=== PATIENT | female | born 1955 ===

== ENCOUNTER 2018-02-16 21:04 | Emergency (ER) | payer SELFPAY ==
[2018-02-16 21:16] VITALS: TEMP 98.6
[2018-02-16] MEDS ORDERED: Aspirin 325 mg EC Tablets PO STA (21:32)
--- NOTE | 2018-02-16 21:35 | C.PDOC ---
History Of Present Illness 63 year old female patient with hx of hyperthyroidism presents to the ER with c/o dizziness and chest pressure. Patient reports she had high blood pressure for x1 week. Patient was prescribed Amlodipine 2.5 mg but never used it. Patient denies nausea, vomiting and diarrhea. Time Seen by Provider: 02/16/18 21:18 Chief Complaint (Nursing): Chest Pain History Per: Patient History/Exam Limitations: no limitations Onset/Duration Of Symptoms: Days (x1 week) Current Symptoms Are (Timing): Still Present Past Medical History Reviewed: Historical Data, Nursing Documentation, Vital Signs Vital Signs: Last Vital Signs Temp 98.6 F 02/16/18 21:11 Pulse 101 H 02/16/18 21:11 Resp 18 02/16/18 21:11 BP 166/114 H 02/16/18 21:11 Pulse Ox 100 02/16/18 21:11 - Medical History PMH: HTN, Hypothyroidism Family History: States: No Known Family Hx - Social History Hx Alcohol Use: No Hx Substance Use: No - Immunization History Hx Tetanus Toxoid Vaccination: No Hx Influenza Vaccination: No Hx Pneumococcal Vaccination: No Review Of Systems Except As Marked, All Systems Reviewed And Found Negative. Cardiovascular: Positive for: Chest Pain (pressure) Gastrointestinal: Negative for: Nausea, Vomiting, Diarrhea Neurological: Positive for: Dizziness Physical Exam - Physical Exam Appears: Non-toxic, No Acute Distress Skin: Normal Color, Warm, Dry Head: Normacephalic Eye(s): bilateral: Normal Inspection, EOMI Chest: Symmetrical, No Deformity Cardiovascular: Rhythm Regular Respiratory: Normal Breath Sounds Extremity: Normal ROM (x4) Neurological/Psych: Oriented x3, Normal Speech Gait: Steady ED Course And Treatment - Laboratory Results Result Diagrams: 02/16/18 21:37 02/16/18 21:37 ECG: Interpreted By Me, Viewed By Me ECG Rhythm: Sinus Rhythm Interpretation Of ECG: ST wave abnormalities Rate From EC O2 Sat by Pulse Oximetry: 100 (RA) Pulse Ox Interpretation: Normal Medical Decision Making Medical Decision Making: Impression: dizziness and chest pressure with high blood pressure Plans: -- EKG -- chem labs -- blood work -- CXR -- Ecotrin -- lopressor -- nitrostat CTA unremarkable CO resolved, BP normalized Disposition Counseled Patient/Family Regarding: Studies Performed, Diagnosis, Need For Followup, Rx Given - Disposition Referrals: [facility] [Outside] Disposition: HOME/ ROUTINE Disposition Time: 23:43 Condition: IMPROVED Prescriptions: Metoprolol Sunshine/Hydrochlorothiaz [Metoprolol ER-Hctz 25-12.5 mg] 1 each PO DAILY #30 tab.er.24h Instructions: High Blood Pressure Emergencies Forms: Gen Discharge Inst Kazakh - POA Present On Arrival: None - Clinical Impression Clinical Impression: Chest pain, Hypertension - Scribe Statement The provider has reviewed the documentation as recorded by the Ray Skinner Do Provider Attestation: All medical record entries made by the Ray were at my direction and personally dictated by me. I have reviewed the chart and agree that the record accurately reflects my personal performance of the history, physical exam, medical decision making, and the department course for this patient. I have also personally directed, reviewed, and agree with the discharge instructions and disposition.
[2018-02-16] MEDS ORDERED: Aspirin 325 mg EC Tablets PO ONE (21:42)
[2018-02-16 21:44] LABS: BASO # 0.1 K/uL (0.0-0.2); BASO % 0.9 % (0.0-2.0); EOS # 0.8 K/uL (0.0-0.7); EOS % 8.5 % (0.0-4.0); HEMOGLOBIN 13.4 g/dL (11.0-16.0); LYMPH # 3.1 K/uL (1.0-4.3); LYMPH % 31.7 % (20.0-40.0); MEAN CORPUSCULAR HEMOGLOBIN 30.1 pg (27.0-31.0); MEAN CORPUSCULAR HGB CONC 34.2 g/dL (33.0-37.0); MONO # 0.6 K/uL (0.0-0.8); NEUT # 5.1 K/uL (1.8-7.0); NEUT % 52.9 % (50.0-75.0); RBC 4.44 Mil/uL (3.80-5.20); RED CELL DISTRIBUTION WIDTH 13.5 % (11.5-14.5); WHITE BLOOD COUNT 9.7 K/uL (4.8-10.8)
[2018-02-16 21:53] LABS: ALB/GLOB RATIO 1.4 (1.0-2.1); ALBUMIN 4.7 g/dL (3.5-5.0); ALT/SGPT 22 U/L (9-52); AST/SGOT 25 U/L (14-36); BLOOD UREA NITROGEN 18 mg/dL (7-17); GFR NON-AFRICAN AMERICAN > 60
[2018-02-16 22:04] LABS: B-TYPE NATRIURETIC PEPTIDE 83.9 pg/mL (0-900)
[2018-02-16] MEDS ORDERED: Iodixanol 320 MG/ML 100 ML BOTTLE IV ONE (22:10)
[2018-02-16 22:58] VITALS: BP 150/82; PULSE 69; RESP 16
[2018-02-16 23:43] VITALS: O2SAT 100
--- NOTE | 2018-02-17 09:29 | RAD ---
Date of service: 02/16/2018 HISTORY: chest pain COMPARISON: No prior. TECHNIQUE: Chest PA and lateral FINDINGS: LUNGS: The interstitial markings are slightly increased and coarsened; rule out sequela of reactive- inflammatory airway disease or viral illness. No acute focal consolidation. There also appear to be mild biapical pleural thickening changes left greater than right. Questionable left apical pleural based calcifications and/or calcified granulomata. Follow-up nonemergent CT scan of the chest could be performed for further evaluation. PLEURA: No significant pleural effusion identified. No pneumothorax apparent. CARDIOVASCULAR: Normal. OSSEOUS STRUCTURES: Mild multilevel degenerative spondylosis of the thoracic spine VISUALIZED UPPER ABDOMEN: Normal. OTHER FINDINGS: None. IMPRESSION: The interstitial markings are slightly increased and coarsened; rule out sequela of reactive - inflammatory airway disease or viral illness. No acute focal consolidation. The there also appear to be mild biapical pleural thickening changes left greater than right. Questionable left apical pleural based calcifications and/or calcified granulomata. Follow-up nonemergent CT scan of the chest could be performed for further evaluation.
--- NOTE | 2018-02-17 12:24 | CT ---
PROCEDURE: CT Angiography Chest, Abdomen and Pelvis with and without intravenous contrast HISTORY: chest and back pain, HTN COMPARISON: None. TECHNIQUE: Contiguous axial images of the chest, abdomen and pelvis were obtained in the phase of aortic enhancement. A noncontrast enhanced CT of the chest was also obtained to evaluate for possible intramural thrombus. Coronal and sagittal reformats were generated. IV dose administered: 100 cc Visipaque 320 Radiation dose: Total exam DLP = 989.03 mGy-cm. This CT exam was performed using one or more of the following dose reduction techniques: Automated exposure control, adjustment of the mA and/or kV according to patient size, and/or use of iterative reconstruction technique. FINDINGS: CT ANGIOGRAPHY OF THE CHEST WITH & WITHOUT CONTRAST: AORTA (CHEST AND ABDOMEN): The thoracic and abdominal aorta are unremarkable, without aneurysm, dissection or rupture. No intramural thrombus identified in the thoracic aorta on the non-contrast ct of the chest. The celiac axis, superior mesenteric artery, inferior mesenteric artery and the renal arteries are widely patent. The pelvic arteries are unremarkable. LUNGS: Clear. No nodule, mass or consolidation. MEDIASTINUM: Heart is enlarged. No significant pericardial effusion. Normal caliber aorta measuring approximately 3.4 cm. Descending thoracic aorta measures approximately 2.35 cm. No evidence of aortic dissection. Three-vessel arch. Pulmonary trunk measures approximately 3.0 cm.. There is a small hiatal hernia. LYMPH NODES: No significant mediastinal or hilar adenopathy. Central airways midline and patent. There are no large central endoluminal lesions PLEURA: Unremarkable. No pneumothorax. No pleural fluid. BONES: Minor multilevel degenerative spondylosis of the thoracic and lumbar spine. There are no acute compression fractures nor retropulsed fragments. Minimal scoliotic deformity mid thoracic spine convex right and lower thoracic spine convex left. Moderately large amount no suspicious lytic or blastic lesions. OTHER FINDINGS: None.. CT ANGIOGRAPHY OF THE ABDOMEN AND PELVIS WITH CONTRAST: LIVER: There are few small round and elliptical shaped low-attenuation foci scattered throughout the hepatic parenchyma the largest in the left lobe measuring approximately 9 mm consistent with a small cyst with Hounsfield units in the mid teens. A 2nd smaller focal area of low attenuation seen in the right lobe of the liver measuring approximately 6 mm with Hounsfield units in the mid 20s. This could represent a small cyst or hemangioma. Follow-up nonemergent triple phase CT scan of the liver could be performed for further evaluation. GALLBLADDER AND BILE DUCTS: No definitive evidence of intraluminal gallbladder calculi. PANCREAS: Unremarkable. No gross lesion or ductal dilatation. SPLEEN: Unremarkable. ADRENALS: No adrenal lesions. KIDNEYS AND URETERS: Unremarkable. No hydronephrosis. No solid mass. VASCULATURE: Unremarkable. No aortic aneurysm. STOMACH AND BOWEL: Moderate amount of stool is seen throughout the large bowel consistent with fecal retention/constipation. The APPENDIX: Normal appendix. PERITONEUM: Unremarkable. No free fluid. No free air. LYMPH NODES: Unremarkable. No enlarged lymph nodes. BLADDER: Urinary bladder is physiologically distended. No evidence of intraluminal urinary bladder calculi. REPRODUCTIVE: Apparent retroverted uterus occupying the right aspect of the cul de sac. BONES: No acute fracture. OTHER FINDINGS: None. IMPRESSION: No evidence of abdominal aortic aneurysm or dissection no significant atherosclerotic disease of the thoracic or abdominal aorta Suspect small cyst left lobe liver. Tiny sub cm low-attenuation focus right lobe liver too small to characterize though may represent small cyst or hemangioma. Follow-up triple phase CT scan liver could be performed for further evaluation. Findings consistent with constipation. Note that this report was placed in PA review folder for follow up.
--- NOTE | 2018-02-18 21:06 | CARD ---
APPROVED REPORT Date of service: 02/16/2018 EKG Measurement Heart [id number] <Conclusion> Normal sinus rhythm Nonspecific ST abnormality Abnormal ECG
== END 2018-02-16 23:54 | disposition home or self-care (01) ==
LOC: C.ER 21:04
DX: R07.9 Chest pain, unspecified (principal); I10 Essential (primary) hypertension
CPT/HCPCS: 71046; 71275; 74175; 80053; 83880; 84484; 85025; 93005; 94770; 99285; Q9967